=== PATIENT | female | born 1995 | race Caucasian/White ===

== ENCOUNTER → 2018-01-24 15:40 | Outpatient (CLI) | payer OTHER, SELFPAY ==
[2018-01-25 12:10] LABS: Group B Strep DNA By PCR Negative (Negative); Internal Control PASS; Probe Check PASS; Specimen Processing Control PASS
== END ==
PROVIDERS: Visit Provider Obstetrics & Gynecology
DX: Z36.85 Encounter for antenatal screening for Streptococcus B (principal)
CPT/HCPCS: 87081; 87653

== ENCOUNTER 2018-02-12 03:15 | Inpatient (IN) | payer SELFPAY ==
[2018-02-12 01:44] VITALS: BMI 26.6
[2018-02-12] MEDS: Lactated Ringers 1,000 ML 50 ML IV ×5 (03:50→14:32)
[2018-02-12] MEDS: Ondansetron 4 MG/2 ML Vial IV (03:57)
[2018-02-12 04:07] LABS: Hematocrit 34.2 % (37-47); Hemoglobin 11.4 g/dl (12.0-15.0); Mean Corp Hgb Conc 33.3 g/gl (32-36); Mean Corpuscular Hgb 31.2 pg (27.0-32.0); Mean Corpuscular Volume 93.7 fL (81-99); Mean Platelet Vol. 10.7 fl (6.2-12.0); Platelet Count 117 K/mm3 (150-450); RBC Distribution Width CV 13.7 % (11.6-14.6); RBC Distribution Width SD 46.9 fl (35.1-43.9); Red Blood Count 3.65 M/mm3 (4.2-5.4); White Blood Count 7.8 K/mm3 (4.4-11.0)
[2018-02-12 04:08] LABS: Scan Indicated on CBC? Y/N NO
[2018-02-12] MEDS: fentaNYL-bupivacaine (epidural) 100 ML BAG EPIDURAL ×3 (05:30→15:34)
[2018-02-12] MEDS: Oxytocin 30 units/NS 500 ml 30 UNITS/500 ML IV.SOLN IV (14:38)
[2018-02-12] MEDS: Oxytocin 30 units/NS 500 ml 30 UNITS/500 ML IV.SOLN 334 UNITS IV (16:09)
--- NOTE | 2018-02-12 16:25 | PCM.OB.VAG ---
Vaginal Delivery Maternal Presentation: Active Labor Amniotic Membrane Rupture Type: Spontaneous Amniotic Fluid Description: Clear Final ABHIJEET: 02/18/18 Final ABHIJEET Source: US <20 weeks Gestational age: 39 Weeks and 1 Days Date of Procedure: 02/12/18 Pre-Operative Diagnosis: IUP Post-Operative Diagnosis: IUP Surgery/ Procedure Performed: Spontaneous Vaginal Delivery, Vacuum Assisted Vaginal Delivery Type of Anesthesia: Epidural Description of Procedure: Spontaneous vaginal delivery of a viable male with Apgars of 8/9 with an occiput anterior presentation with clear amniotic fluid and normal three-vessel placenta and cord around the neck ?1 loose. First-degree midline episiotomy extended to a second-degree midline laceration repaired with 3-0 rapide suture under epidural anesthesia. Kiwi vacuum suction used ?1 gentle pull from low outlet with no pop offs to expedite delivery of the head after more than 3 hours of pushing and increasing maternal fatigue and deep variable decelerations with pushing. Sponge counts okay. Delivery physician: Hadley Stephen MD. Presentation: Vertex Placental Delivery Description: Spontaneous Placenta Disposition: [facility] Cord Vessel Description: 3 Vessels Cord Entanglement: Around neck x 1, loose Estimated Blood Loss: 250 cc Infant A gender: Male (1 minute): 8 (5 minute): 9 Episiotomy Description: Midline, 1st degree Laceration: Midline, Perineal Extension/lac, 2nd degree Medications given after delivery: IV Pitocin Complications: None
--- NOTE | 2018-02-12 16:29 | PCM.DCVAG ---
Discharge Diet: No Restrictions Discharge Activity: May Shower, May Take a Tub Bath May resume sexual activity in: 4-6 weeks Additional Activity Instructions:: Nothing in the vagina for 4-6 weeks. You may return to work/school in 6 weeks. Call your doctor if you observe: Fever of 101 or Higher, Inability to urinate, Inability to have a bowel movement, Using more than one pad per hour Additional Instructions: If you experience any of the following, contact your healthcare provider. Bleeding that soaks a pad every hour for 2 hours Unrelieved incision or abdominal pain Swelling, redness, discharge or bleeding from your incision or episiotomy site Your incision begins to separate Problems urinating (including inability to urinate or burning while urinating). Visual changes Severe headache Flu-like symptoms Pain or redness in one of both of your breasts Pain, warmth, tenderness or swelling in your legs, especially the calf area Frequent nausea and vomiting Symptoms of depression or anxiety If you experience any of the following, call 911 or go to the nearest Emergency Room. Chest pain Problems breathing Seizure activity Partial or complete paralysis of a body part, slurred speech, weakness or drooping of the face, or a sudden inability to walk or hold your balance Allergies/Adverse Reactions: Allergies No Known Allergies Allergy (Verified 02/12/18 01:44) Medications to take at Discharge Prenatabs FA 1 tablet PO DAILY 02/12/18 Please Follow Up With: Hadley Stephen MD - [phone] When: Call to make an appointment with your doctor in 6 weeks. Primary Care Physician: Hadley Doyle [Primary Care Provider] -
--- NOTE | 2018-02-12 16:30 | DCINST_ITS ---
Discharge Diet: No Restrictions Discharge Activity: May Shower, May Take a Tub Bath May resume sexual activity in: 4-6 weeks Additional Activity Instructions:: Nothing in the vagina for 4-6 weeks. You may return to work/school in 6 weeks. Call your doctor if you observe: Fever of 101 or Higher, Inability to urinate, Inability to have a bowel movement, Using more than one pad per hour Additional Instructions: If you experience any of the following, contact your healthcare provider. * Bleeding that soaks a pad every hour for 2 hours * Unrelieved incision or abdominal pain * Swelling, redness, discharge or bleeding from your incision or episiotomy site * Your incision begins to separate * Problems urinating (including inability to urinate or burning while urinating) . * Visual changes * Severe headache * Flu-like symptoms * Pain or redness in one of both of your breasts * Pain, warmth, tenderness or swelling in your legs, especially the calf area * Frequent nausea and vomiting * Symptoms of depression or anxiety If you experience any of the following, call 911 or go to the nearest Emergency Room. * Chest pain * Problems breathing * Seizure activity * Partial or complete paralysis of a body part, slurred speech, weakness or drooping of the face, or a sudden inability to walk or hold your balance Allergies/Adverse Reactions: Allergies No Known Allergies Allergy (Verified 02/12/18 01:44) Medications to take at Discharge Prenatabs FA 1 tablet PO DAILY 02/12/18 Please Follow Up With: Hadley Stephen MD - [phone] When: Call to make an appointment with your doctor in 6 weeks. Primary Care Physician: Hadley Doyle [Primary Care Provider] -
[2018-02-12] MEDS: Oxytocin 30 units/NS 500 ml 30 UNITS/500 ML IV.SOLN 167 UNITS IV (16:39)
[2018-02-12 20:41] VITALS: BP 107/62; PULSE 82; RESP 18; TEMP 36.9
[2018-02-12] MEDS: Ibuprofen 600 MG Tablet PO (21:09)
--- NOTE | 2018-02-12 21:10 | NURSING ---
At 2049, Miryam RN and Liban MCGHEE assisted pt to bathroom. Pt got dizzy and light-headed after voiding and doing irvni care. Pt then assisted to wheelchair and moved to room 6. Pt assisted into bed and then given orange juice and vital signs and bleeding assessed, all wnl. Pt encouraged to call for assistance when getting up to void again.
[2018-02-12 21:11] VITALS: BP 110/64; PULSE 69; RESP 16; O2SAT 100
[2018-02-13 00:15] VITALS: BP 107/49; PULSE 82; RESP 18; TEMP 36.3
[2018-02-13 04:48] VITALS: BP 107/68; PULSE 71; RESP 16; TEMP 36.6
[2018-02-13 06:00] VITALS: BP 100/50; PULSE 78; RESP 16; TEMP 36.6; O2SAT 95
[2018-02-13] MEDS: Ibuprofen 600 MG Tablet PO ×2 (06:33→23:12)
[2018-02-13 10:00] VITALS: BP 109/69; PULSE 103; RESP 16; TEMP 36.7; O2SAT 94
--- NOTE | 2018-02-13 10:12 | PCM.PN.OB ---
Subjective: Patient without complaints. Breast-feeding going well. Perineum sore. - Physical Exam Vital Signs AF, VSS Temp Pulse Resp BP Pulse Ox 97.9 F 78 16 100/50 L 95 02/13/18 06:00 02/13/18 06:00 02/13/18 06:00 02/13/18 06:00 02/13/18 06:00 Oxygen Delivery Method Room Air Weight: 180 lb 12.465 oz Body Mass Index (BMI) 26.6 Intake and Output for Last 24 Hours 02/11/18 02/12/18 02/13/18 23:59 23:59 23:59 Intake Total 4811 / 4811 Output Total 3200 / 3200 850 / 850 Balance 1611 / 1611 -850 / -850 Laboratory Tests Past 24 Hrs 02/12/18 02/12/18 18:15 Unknown Kleihauer-Betke F Hgb Pending Screen POSITIVE H Baby's Blood Type A POSITIVE Baby's SOFYA NEGATIVE Medical Necessity - Tobacco Use Smoking Status: Never smoker Assessment/Plan Doing well. Continuing present care.
[2018-02-13 14:00] VITALS: BP 109/54; PULSE 76; RESP 16; TEMP 36.7; O2SAT 95
[2018-02-13 15:02] LABS: Kleihauer-Betke POSITIVE
[2018-02-13] MEDS: Acetaminophen 500 MG Tablet 1000 MG PO (19:15)
[2018-02-13 19:50] VITALS: BP 105/56; PULSE 71; RESP 16; TEMP 36.3; O2SAT 95
[2018-02-14 01:59] VITALS: BP 95/47; PULSE 71; RESP 18; TEMP 36.7; O2SAT 96
--- NOTE | 2018-02-14 06:54 | PCM.PN.OB ---
Subjective: Patient without complaints. Breast-feeding going well. Ready to go home. - Physical Exam Vital Signs AF, VSS Temp Pulse Resp BP Pulse Ox 98.1 F 71 18 95/47 L 96 02/14/18 01:59 02/14/18 01:59 02/14/18 01:59 02/14/18 01:59 02/14/18 01:59 Oxygen Delivery Method Room Air Weight: 180 lb 12.465 oz Body Mass Index (BMI) 26.6 Intake and Output for Last 24 Hours 02/12/18 02/13/18 02/14/18 23:59 23:59 23:59 Intake Total 4811 / 4811 Output Total 3200 / 3200 850 / 850 Balance 1611 / 1611 -850 / -850 Laboratory Tests Past 24 Hrs 02/12/18 Unknown Lakeshaauer-Betjenny F Hgb POSITIVE H Medical Necessity - Tobacco Use Smoking Status: Never smoker Assessment/Plan Doing well day #2. Will release to home with routine instructions.
[2018-02-14] MEDS: Acetaminophen 500 MG Tablet 1000 MG PO (07:02)
[2018-02-14 07:32] VITALS: BP 93/47; PULSE 72; RESP 16; TEMP 36.5; O2SAT 96
== END 2018-02-14 11:40 | disposition home or self-care (01) | DRG 775 ==
LOC: WPOUT 03:20
PROVIDERS: Admitting Provider Obstetrics & Gynecology; Family Provider Family Medicine; PCP Family Medicine; Visit Provider Obstetrics & Gynecology
DX: O76 Abnormality in fetal heart rate and rhythm complicating labor and delivery (principal); O99.113 Other diseases of the blood and blood-forming organs and certain disorders involving the immune mechanism complicating pregnancy, third trimester; O26.813 Pregnancy related exhaustion and fatigue, third trimester; O42.02 Full-term premature rupture of membranes, onset of labor within 24 hours of rupture; O69.81X0 Labor and delivery complicated by cord around neck, without compression, not applicable or unspecified; D69.6 Thrombocytopenia, unspecified; O70.1 Second degree perineal laceration during delivery; Z3A.39 39 weeks gestation of pregnancy; Z37.0 Single live birth
CPT/HCPCS: 59050; 85027; 85460; 85461; 86850; 86900; 90384; 99218; J7120; G0378; J2405; J2790

== ENCOUNTER → 2019-12-11 16:00 | Outpatient (CLI) | payer OTHER, SELFPAY ==
[2019-12-14 01:12] LABS: HPV Reflexed? NOT INDICATED
== END ==
PROVIDERS: Visit Provider Obstetrics & Gynecology
DX: Z12.4 Encounter for screening for malignant neoplasm of cervix (principal)
CPT/HCPCS: 88175; G0145

== ENCOUNTER → 2020-05-23 14:33 | Outpatient (CLI) | payer OTHER, SELFPAY ==
[2020-05-23 16:03] LABS: Absolute Lymphocyte Count 1.04 X10^3/uL (0.83-4.51); Absolute Neutrophil Count 4.8 X10^3/uL (2.0-7.7); Basophil# 0.01 X10^3/uL; Basophil% 0.2 % (0-1); Eosinophil# 0.06 X10^3/uL; Hematocrit 33.5 % (37-47); Hemoglobin 11.3 g/dL (12.0-15.0); Lymphocyte # 1.04 X10^3/ul (4.0); Lymphocyte % 16.5 % (19-41); Mean Corp Hgb Conc 33.7 g/dL (32-36); Mean Corpuscular Volume 91.8 fL (81-99); Mean Platelet Vol. 10.5 fl (6.2-12.0); Monocyte# 0.37 X10^3/uL; Monocyte% 5.9 % (0-10); NRBC Flagged by Analyzer 0 % (0-5); Neutrophil # 4.82 X10^3/uL (2.7-7.7); Neutrophil % 76.2 % (47-70); Platelet Count 125 K/mm3 (150-450); RBC Distribution Width CV 13.2 % (11.6-14.6); RBC Distribution Width SD 43.8 fl (35.1-43.9); Red Blood Count 3.65 M/mm3 (4.2-5.4); White Blood Count 6.3 K/mm3 (4.4-11.0)
[2020-05-23 16:20] LABS: Thyroid Stim Hormone (TSH) 0.79 uIU/mL (0.358-3.74)
[2020-05-23 16:29] LABS: Color, Urine Yellow (Yellow); Glucose, Dipstick Normal (Normal); Ketone-Dipstick Negative (Negative); Leukocyte Esterase-Dipstick Negative /ul (Negative); Nitrite-Dipstick Negative (Negative); Occult Blood-Urine Negative /ul (Negative); Protein-Dipstick Negative (Negative); Urine Bilirubin Dipstick Negative (Negative); Urine Clarity Clear (Clear); Urine Urobilinogen Normal (Normal)
[2020-05-23 18:25] LABS: Chlamydia Trachomatis by PCR Negative (Negative); Neisserai gonorrhoeae by PCR Negative (Negative); Probe Check PASS; Sample Adequacy Control PASS; Specimen Processing Control PASS
[2020-05-26 11:04] LABS: HIV - WCH Non-Reactive (Nonreactive); Hepatitis B Surface Antigen Non-Reactive (Nonreactive); Hepatitis C Antibody Non-Reactive (Nonreactive); Rubella IgG 54.7 IU/mL
[2020-05-29 11:06] LABS: Prenatal RPR NONREACTIVE (NONREACTIVE)
== END ==
PROVIDERS: Visit Provider Obstetrics & Gynecology
DX: Z34.82 Encounter for supervision of other normal pregnancy, second trimester (principal); Z11.3 Encounter for screening for infections with a predominantly sexual mode of transmission
CPT/HCPCS: 36415; 81002; 84443; 85025; 86703; 86762; 86803; 87340; 87491; 87591

== ENCOUNTER → 2020-10-21 | Outpatient (CLI) | payer OTHER, SELFPAY | END | disposition home or self-care (01) | LOC: LABSPEC 10-22 08:52 | PROVIDERS: Visit Provider Obstetrics & Gynecology | DX: Z36.85 Encounter for antenatal screening for Streptococcus B (principal) | CPT/HCPCS: 87081 ==

== ENCOUNTER → 2020-11-04 17:22 | Outpatient (CLI) | payer OTHER, SELFPAY | PROVIDERS: PCP Family Medicine; Referring Provider Obstetrics & Gynecology; Visit Provider Obstetrics & Gynecology | DX: Z20.822 Contact with and (suspected) exposure to COVID-19 (principal) | CPT/HCPCS: 87635; C9803; U0003 ==

== ENCOUNTER 2020-11-05 21:40 | Inpatient (IN) | payer SELFPAY, OTHER ==
[2020-11-05] VITALS (24 sets, daily range): BP systolic 96–122; BP diastolic 59–85; PULSE 62–85; TEMP 36.2–36.9; O2SAT 97–99; BMI 27.1
[2020-11-05] MEDS: Lactated Ringers 1,000 ML 200 ML IV (21:50)
[2020-11-05] MEDS: Lactated Ringers 500 ML 999 ML IV ×2 (22:05→23:50)
[2020-11-05 22:16] LABS: Absolute Lymphocyte Count 1.05 X10^3/uL (0.83-4.51); Absolute Neutrophil Count 7.4 X10^3/uL (2.0-7.7); Basophil# 0.01 X10^3/uL; Basophil% 0.1 % (0-1); Eosinophil# 0.03 X10^3/uL; Eosinophils% 0.3 % (0-5); Hematocrit 31.1 % (37-47); Hemoglobin 10.8 g/dL (12.0-15.0); Lymphocyte # 1.05 X10^3/ul (4.0); Lymphocyte % 11.6 % (19-41); Mean Corp Hgb Conc 34.7 g/dL (32-36); Mean Corpuscular Hgb 32.6 pg (27.0-32.0); Mean Platelet Vol. 10.8 fl (6.2-12.0); Monocyte% 5.5 % (0-10); NRBC Flagged by Analyzer 0 % (0-5); Neutrophil # 7.41 X10^3/uL (2.7-7.7); Neutrophil % 82.1 % (47-70); Platelet Count 115 K/mm3 (150-450); RBC Distribution Width CV 13.2 % (11.6-14.6); RBC Distribution Width SD 45.5 fl (35.1-43.9); Red Blood Count 3.31 M/mm3 (4.2-5.4)
[2020-11-05 22:20] LABS: ROM Internal Control Test YES-OK TO RESULT pt. (Internal QC); ROM Patient Test Negative (Negative)
[2020-11-05] MEDS: fentaNYL-bupivacaine (epidural) 100 ML BAG EPIDURAL (23:52)
[2020-11-06] VITALS (37 sets, daily range): BP systolic 82–115; BP diastolic 46–74; PULSE 60–82; RESP 16; TEMP 36.1–36.9; O2SAT 96–100
[2020-11-06] MEDS: Lactated Ringers 500 ML 999 ML IV (02:08)
[2020-11-06] MEDS: ePHEDrine Sulfate 50 MG/ML Ampul 10 MG IV (02:57)
[2020-11-06] MEDS: 0.9% Saline Lock 10 ML Syringe IV (03:09)
[2020-11-06] MEDS: Lactated Ringers 1,000 ML 200 ML IV (04:38)
[2020-11-06] MEDS: fentaNYL-bupivacaine (epidural) 100 ML BAG EPIDURAL (04:42)
[2020-11-06] MEDS: Oxytocin 30 units/NS 500 ml 30 UNITS/500 ML IV.SOLN IV (06:02)
[2020-11-06] MEDS: Oxytocin 30 units/NS 500 ml 30 UNITS/500 ML IV.SOLN 334 UNITS IV (09:30)
--- NOTE | 2020-11-06 09:51 | HP.PCM_ITS ---
History and Physical Date of Admission: 11/05/20 [facility] [place] [place] ANTEPARTUM RECORD - HISTORY AND PHYSICAL (11/06/2020) Name: NA LEONARD History of This : This is a 25-year-old AB 3 who presents in active labor at 39 weeks gestation. care has been uneventful. OB Physician: JOSE 's Physician: Cindy Doyle ...................................................................... : 1995 Age: 25 Address: [address] [place] [address] Phone: [phone] Insurance Carrier: [facility] [id number] Emergency Contact: BOB LEONARD [phone] ...................................................................... Final ABHIJEET: 11/13/20 By Ultrasound: 15 weeks 1 day PARITY: (G-Total Pregnancies P-Fullterm,Premature,Induced AB,Spont AB, Ectopics, Multiple,Living) ABHIJEET CONFIRMATION: By LMP: 02/07/20 Final ABHIJEET: 11/13/20 OB PROBLEM LIST: 3 early SAB's 3 hr 2nd stage with son, vac assist AFP/CF/SMA screening declined - considering class EPDS on 05/23/2020 = 1. States she had baby blues after son was born. breeds and boards horses. Likely epidural ALLERGIES: No Known Allergies MEDICATIONS: 28 mg iron-800 mcg tablet One pill by mouth once a day SOCIAL HISTORY: Smoking - Never Alcohol Use - None Diet - no special diet Lifestyle - moderate stress lifestyle and Exercise - active Employer - [employer] Job Description - Illicit Drug Use - None Sexual Activity - Residence - lives with Place of - [place], [place] Spouse-Sig Other Name - Ray Spouse-Sig Other Occupation - Self Employed/[employer] Children Name(s) - David(18) PRIOR DELIVERY HISTORY DEL DATE GEST LAB WT LB WT OZ TYPE ANES LABOR TX 03 Feb 17 12 0 0 0 Sab Epidural No 08 Feb 20 6 0 0 0 Sab None No 21 Oct 16 6 0 0 0 Sab Epidural No 29 Apr 18 39 18 8 4 Vacuu Epidural No ANTEPARTUM FLOW CHART VISIT GE RTC FU F F HI U U DATE WK MD WKS HT PN HR M SS BP ED WT HI GL D EF ST __ ____ ___ __ __ ___ __ __ __ ___ __ __ __ ___ __ Oct JM 1 38 V + + 114/68 sl 180 tr - 4 70 -2 12 Oct JMW 1 36 V + + 120/70 sl 184 tr - 3+ 75 -2 05 Oct JMW 1 35 V + + 114/64 sl 178 1+ - 2+ 75 -2 Sep JMW 2 34 + + 102/58 0 176 tr - 01 Oct 16 JMW 3 31 + + 102/64 sl 173 tr - 10 Sep 13 JMW 3 28 + + 106/58 0 173 - 1+ 06 Aug 08 JMW 4 24 + + 108/58 0 167 tr - 03 Jul 05 JMW 4 20 + + 106/60 0 159 - - ANTEPARTUM NOTE(S): Nov 04 2020: feeling well, considering induction Oct 28 2020: Ctxs-occas, Good FM Oct 21 2020: LARQ signed, GBS today Oct 07 2020: Nausea Returned, Good FM Sep 16 2020: Good FM, yeast itchiness with OTC Monistat discussed Aug 26 2020: 1hrGTT,CBC,Antibody screen draw, and Rhogam today Jul 22 2020: Doing Well and Glucola Given Jun 19 2020: Sono Today,Periodic vertigo with same discussed COMPREHENSIVE ANTEPARTUM NOTE(S): Nov 04 2020: 38wk, desires IOL at 39wk. Needs COVID testing prior to elective induction. Pt to attempt to get COVID testing arin. When results are back will schedule IOL as soon as possible. Favorable cervix. swept membranes today. JM Aug 26 2020: Labs drawn from left ac x 1 attempt with 23G butterfly patient tolerated well, site without compromise. RHogam administered IM as ordered RUOQ patient tolerated well site without compromise. jlb May 30 2020: TELEHEALTH NOB VISIT. Na is a 24 year old A3 with an ABHIJEET of 11/13/2020, current GA is 16 w 1 d. She and , Bob, have a 2 year old son at home who was delivered with vac assist following a 3 hour 2nd stage. Past history updated. She states that she is feeling some FM. Delivery at [facility] is planned with a likely epidural, and she will breastfeed. States that she had difficulty nursing her son, and switched to formula. Discussed and encouraged office class as a refresher, she states that she may do this. Office practice patterns reviewed, labs have been collected. Emergencies/danger signs to report, reporting a suspected UTI, round ligament pain, how to contact the office during/after hours, and common OTC medications for minor ailments approved/not approved for use during . Na has been feeling some nausea most days, no emesis lately. She states that the nausea is tolerable as she was nauseated throughout her with her son. Reviewed measures that may help minimize nausea, including small frequent meals with protein included throughout the day, adequate water hydration of at least one gallon per 24 hours, carb rich foods when nauseated, and motion sickness bracelets. She states that she has tried Vitamin B6 50 mg twice a day along with Unisom at bedtime, and that she felt worse. Na takes an OTC gummy vitamin containing DHA and states that she tolerates this well. Denies history of depression/anxiety, but states that she felt a little of the baby blues after my son was born. EPDS on 05/23/2020 = 11/15. She declined AFP/CF/SMA screening on 05/23/2020. Na is a life long non-smoker, and denies use of drugs or ETOH. She walks everyday and does active chores on the [place]. Advised not to lift anything greater than 25 lbs. Water/dietary/caloric needs for reviewed, including recommended weight gain, limiting empty calories, limiting caffeine to one cup a day, and food safety during . Na states that she understands all information provided during 35 minute telephone NOB visit, and that she has no questions following same. AW New May 23 2020: As above, spotting improving. No clots or heavy bleeding. Asymptomatic otherwise. JM May 23 2020: Na is here for a missed menses. LMP 02/07/2020. UPT in office positive. She has spotting off and on since February. Tuesday the spotting was bright red. She has US today. ABHIJEET 11/13/2020. PAP 2019 WNL. She expressed that does not want GCCT testing. New Pkt given today. NOB consents read and signed. HECTOR Dec 11 2019: Na presents here today with spouse(Bob) for annual pap/ex am. 24 y.o. G 4 P 1 non-smoker with reported Missed AB on 11-22-19 at approximately 5 weeks. 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 Admits to having moments of sadness since the Missed AB, but not all the time. PHQ-9 form filled out with a score of 4 . History of normal pap screening in 2017. Medication and Allergy lists up-dated with no refills needed. Nothing for control as she would like to attempt again in the near future. OLIMPIA Dec 11 2020: ok REVIEW OF SYSTEMS: GENERAL - Denies fever, or chills SKIN - Denies rash, new skin lesions, or change in moles EYES - Denies blurred vision, or change in visual acuity EARS - Denies ear pain, or difficulty hearing NOSE - Denies nasal congestion, discharge, or bleeding MOUTH - Denies sore throat, or difficulty swallowing NECK - Denies pain or swelling RESPIRATORY - Denies shortness of breath, cough, wheezing CARDIOVASCULAR - Denies palpitations, chest pain, orthopnea, PND, peripheral edema, syncope or claudication GASTROINTESTINAL - Denies nausea, vomiting, diarrhea, constipation, Denies abdominal pain, melena and or bright red blood GENITOURINARY - Denies dysuria, frequency of urination, urgency, or hesitancy MUSCULOSKELETAL - Denies joint or muscle pain, or back pain NEUROLOGICAL - Denies localized numbness, weakness, or tingling PSYCHIATRIC - Denies depression, anxiety, substance abuse or suicide attempts ENDOCRINE - Denies heat or cold intolerance, weight loss or gain, increasing thirst HEMATO-IMMUNOLOGIC - Denies easy bruising, bleeding, oral ulcerations or recurrent infections GENETICS SCREENING: Age 35+ years: No Thalassemia: No Neural Tube Defect: No Down Syndrome: No HIRAM-SACHS: No Sickle Cell Disease: No Hemophilia: No Musc. Dystrophy: No Cystic Fibrosis: No-declines screening Sampson Chorea: No Mental Retardation: No Fragile X: No Other genetic: No Other defects: No SABs/still births: Yes x3 Drugs since LMP: No INFECTION HISTORY: High risk AIDS: No High risk Hepatitis: No Exposed to TB: No Exposed to Herpes: No Rash/viral illness since LMP: No History of STD: No MENSTRUAL HISTORY: *Menses Amount/Duration: normal amountMenses Regularity: RegularFrequency: monthlyMenarche (Age Onset): 10* PAST SUMMARY: PARITY: 1. Total Pregnancies............ 5 2. Full Term Pregnancies........ 1 3. Premature.................... 0 4. Abortions - Induced.......... 0 5. Abortions - Spontaneous...... 3 6. Ectopics..................... 0 7. Multiple Births.............. 0 8. Living Children.............. 1 PAST #1: Date of :.................. 08/06/16 Gestation Weeks:................ 6 Length of labor(hours):......... 0 Sex:............................ Weight-lbs:............... 0 Weight-oz:................ 0 Type of Delivery:............... Sab Type of Anesthesia:............. Epidural Place of Delivery:.............. [place] Treatment of Labor?:.... No Comment: PAST #2: Date of :.................. 11/19/16 Gestation Weeks:................ 12 Length of labor(hours):......... 0 Sex:............................ Weight-lbs:............... 0 Weight-oz:................ 0 Type of Delivery:............... Sab Type of Anesthesia:............. Epidural Place of Delivery:.............. [place] Treatment of Labor?:.... No Comment: D AND C PAST #3: Date of :.................. 02/12/18 Gestation Weeks:................ 39 Length of labor(hours):......... 18 Sex:............................ M Weight-lbs:............... 8 Weight-oz:................ 4 Type of Delivery:............... Vacuum Type of Anesthesia:............. Epidural Place of Delivery:.............. [place] Treatment of Labor?:.... No Comment: 3 H SECOND STAGE PAST #4: Date of :.................. 11/24/19 Gestation Weeks:................ 6 Length of labor(hours):......... 0 Sex:............................ Weight-lbs:............... 0 Weight-oz:................ 0 Type of Delivery:............... Sab Type of Anesthesia:............. None Place of Delivery:.............. none Treatment of Labor?:.... No Comment: NO D+C PHYSICAL EXAMINATION General Appearence: 25 yo female in no acute distress Vital Signs: AF, VSS Heart: RRR without rubs or gallops Lungs: CTA x 2 Breasts: deferred Abdomen: gravid Pelvis: Cervix: 6 cm / 90% effaced, bulging bag of water Presentation: cephalic Station: -2 Fetus: Size: AGA Movement: present Heart: present Labs for : NA LEONARD since 02/17/2020 ORDER DATEIN DESCRIPTION VALUE UNITS RANGE A+ COMMENT CULTURE, GROUP B STREPTOCOCCUS 10/21/20 NOTE Original Ordering Provider: Masha SANFORD Culture Group B Beta Streptococcus is not isolated. Reviewed by MASHA GLUCOSE CHALLENGE 50GM 1 HOUR 08/26/20 NOTE Original Ordering Provider: MASHA ROMANO GLUCOSE CHALLENGE 50GM 1 HOUR GLUCOSE CHALLENGE 50 GMS 1 HOUR GLUCOSE 1HR 95 mg/dl 70 - 140 Reviewed by MASHA BB ANTIBODY SCREEN 08/26/20 NOTE Original Ordering Provider: MASHA ROMANO ANTIBODY SCR negative negative Reviewed by MASHA CBC + DIFF 08/26/20 NOTE Original Ordering Provider: MASHA ROMANO CBC + DIFF CBC-COMPLETE BLOOD COUNT WBC 6.5 x 10EE3/UL 4.5 - 10.8 RBC 3.52 x 10EE6/UL 4.10 - 5.30 L HEMOGLOBIN 11.4 g/dl 12.0 - 16.0 L HEMATOCRIT 33.4 % 34.0 - 46.0 L MCV 95 fl 80 - 99 MCH 33 pg 27 - 33 MCHC 34 X10 3 32 - 36 RDW/CV 13.8 % 12.0 - 15.6 PLATELET 133 x10EE3/UL 150 - 450 L MPV 9.1 fl 6.6 - 10.5 AUTOMATED DIFFERENTIAL NEUT % 81.8 % 46.0 - 76.0 H LYMPH % 12.4 % 20.0 - 45.0 L MONOS % 5.0 % 0.0 - 10.0 EO % 0.6 % 0.0 - 7.0 w BASO % 0.2 % 0.0 - 2.0 LYMPH # 0.80 x10EE3/UL 0.80 - 2.80 NEUT # 5.30 x10EE3/UL 1.50 - 7.10 MONO # 0.30 x10EE3/UL 0.20 - 1.00 EO # 0.00 x10EE3/UL 0.00 - 0.50 BASO # 0.00 x10EE3/UL 0.00 - 0.10 MANUAL DIFF N/A MORPHOLOGY N/A w Reviewed by MASHA GC-Chlamydia 05/23/20 Chlamydia NEGATIVE Negative GC NEGATIVE No Growth Reviewed by MASHA Initial OB Labs 05/23/20 Blood Type A Rh Type NEG Antibody Screen NEGATIVE Negative Hemoglobin Initial OB 11.3 Hematocrit Initial OB 33.5 PLT 125 Rubella IMMUNE Immune VDRL NON-REACTIVE Non Reactive HBsAg NEGATIVE Negative HEP C AB: NEG HIV Test NEG Negative Urine Protein NEG Negative Urine Glucose NEG Negative Reviewed by MASHA Impression /Plan: 39-week intrauterine in early active labor. Preparations in progress for delivery.
--- NOTE | 2020-11-06 09:54 | PCM.OPRPT ---
Vaginal Delivery Maternal Presentation: Active Labor Amniotic Membrane Rupture Type: Artificial Amniotic Fluid Description: Clear Final ABHIJEET: 11/13/20 Final ABHIJEET Source: US <20 weeks Gestational age: 39 Weeks and 0 Days Date of Procedure: 11/06/20 Pre-Operative Diagnosis: IUP Post-Operative Diagnosis: IUP Surgery/ Procedure Performed: Spontaneous Vaginal Delivery Type of Anesthesia: Epidural Description of Procedure: Spontaneous vaginal delivery of a viable female infant with Apgars of 9/9 from an occiput anterior presentation with clear amniotic fluid and normal three-vessel placenta. Cord around the neck x2 tight and around the shoulders x1 tight. No episiotomy. First-degree midline laceration repaired with 3-0 Rapide suture under epidural. Banjo curette used x2 gentle curettings to remove adherent membranes. Ancef 1 g given after procedure. Sponges okay. Delivery physician: Hadley Stephen MD. Presentation: Vertex Placental Delivery Description: Spontaneous Placenta Disposition: [facility] Cord Vessel Description: 3 Vessels Cord Entanglement: Around neck x 2, tight Estimated Blood Loss: 250 cc Infant A gender: Female (1 minute): 9 (5 minute): 9 Episiotomy Description: None Laceration: Midline, 1st degree Medications given after delivery: IV Pitocin Complications: None
--- NOTE | 2020-11-06 09:56 | DCINST_ITS ---
<Hadley Stephen - Last Filed: 11/06/20 09:56> Discharge Activity: May Shower, May Take a Tub Bath May resume sexual activity in: 4-6 weeks Additional Activity Instructions:: Nothing in the vagina for 4-6 weeks. You may return to work/school in 6 weeks. Call your doctor if you observe: Inability to urinate, Inability to have a bowel movement, Using more than one pad per hour Additional Instructions: If you experience any of the following, contact your healthcare provider. * Bleeding that soaks a pad every hour for 2 hours * Fever 100.4 or higher * Unrelieved incision or abdominal pain * Swelling, redness, discharge or bleeding from your incision or episiotomy site * Your incision begins to separate * Problems urinating (including inability to urinate or burning while urinating). * Visual changes * Severe headache * Flu-like symptoms * Pain or redness in one of both of your breasts * Pain, warmth, tenderness or swelling in your legs, especially the calf area * Frequent nausea and vomiting * Symptoms of depression or anxiety If you experience any of the following, call 911 or go to the nearest Emergency Room. * Chest pain * Problems breathing * Seizure activity * Partial or complete paralysis of a body part, slurred speech, weakness or drooping of the face, or a sudden inability to walk or hold your balance Allergies/Adverse Reactions: Allergies No Known Allergies Allergy (Verified 11/05/20 21:15) Medications to take at Discharge Prenatabs FA 1 tablet PO DAILY 02/12/18 Please Follow Up With: Hadley Stephen MD - [phone] When: Call to make an appointment with your doctor in 6 weeks. Primary Care Physician: Hadley Doyle MD [Primary Care Provider] - Test Results: Test results from this visit will be discussed in further detail at your follow- up appointment, if applicable. <Mariella Ulloa - Last Filed: 11/07/20 08:55> Additional Instructions: If you experience any of the following, contact your healthcare provider. * Bleeding that soaks a pad every hour for 2 hours * Fever 100.4 or higher * Unrelieved incision or abdominal pain * Swelling, redness, discharge or bleeding from your incision or episiotomy site * Your incision begins to separate * Problems urinating (including inability to urinate or burning while urinating). * Visual changes * Severe headache * Flu-like symptoms * Pain or redness in one of both of your breasts * Pain, warmth, tenderness or swelling in your legs, especially the calf area * Frequent nausea and vomiting * Symptoms of depression or anxiety If you experience any of the following, call 911 or go to the nearest Emergency Room. * Chest pain * Problems breathing * Seizure activity * Partial or complete paralysis of a body part, slurred speech, weakness or drooping of the face, or a sudden inability to walk or hold your balance Test Results: Test results from this visit will be discussed in further detail at your follow-up appointment, if applicable.
--- NOTE | 2020-11-06 09:56 | PCM.DCVAG ---
<Hadley Stephen - Last Filed: 11/06/20 09:56> Discharge Activity: May Shower, May Take a Tub Bath May resume sexual activity in: 4-6 weeks Additional Activity Instructions:: Nothing in the vagina for 4-6 weeks. You may return to work/school in 6 weeks. Call your doctor if you observe: Inability to urinate, Inability to have a bowel movement, Using more than one pad per hour Additional Instructions: If you experience any of the following, contact your healthcare provider. Bleeding that soaks a pad every hour for 2 hours Fever 100.4 or higher Unrelieved incision or abdominal pain Swelling, redness, discharge or bleeding from your incision or episiotomy site Your incision begins to separate Problems urinating (including inability to urinate or burning while urinating). Visual changes Severe headache Flu-like symptoms Pain or redness in one of both of your breasts Pain, warmth, tenderness or swelling in your legs, especially the calf area Frequent nausea and vomiting Symptoms of depression or anxiety If you experience any of the following, call 911 or go to the nearest Emergency Room. Chest pain Problems breathing Seizure activity Partial or complete paralysis of a body part, slurred speech, weakness or drooping of the face, or a sudden inability to walk or hold your balance Allergies/Adverse Reactions: Allergies No Known Allergies Allergy (Verified 11/05/20 21:15) Medications to take at Discharge Prenatabs FA 1 tablet PO DAILY 02/12/18 Please Follow Up With: Hadley Stephen MD - [phone] When: Call to make an appointment with your doctor in 6 weeks. Primary Care Physician: Hadley Doyle MD [Primary Care Provider] - Test Results: Test results from this visit will be discussed in further detail at your follow-up appointment, if applicable. <Mariella Ulloa - Last Filed: 11/07/20 08:55> Additional Instructions: If you experience any of the following, contact your healthcare provider. Bleeding that soaks a pad every hour for 2 hours Fever 100.4 or higher Unrelieved incision or abdominal pain Swelling, redness, discharge or bleeding from your incision or episiotomy site Your incision begins to separate Problems urinating (including inability to urinate or burning while urinating). Visual changes Severe headache Flu-like symptoms Pain or redness in one of both of your breasts Pain, warmth, tenderness or swelling in your legs, especially the calf area Frequent nausea and vomiting Symptoms of depression or anxiety If you experience any of the following, call 911 or go to the nearest Emergency Room. Chest pain Problems breathing Seizure activity Partial or complete paralysis of a body part, slurred speech, weakness or drooping of the face, or a sudden inability to walk or hold your balance Test Results: Test results from this visit will be discussed in further detail at your follow-up appointment, if applicable.
[2020-11-06] MEDS: Cefazolin 1 GM/50 ML BAG IV (10:06)
[2020-11-06] MEDS: Ibuprofen 600 MG Tablet PO (16:38)
[2020-11-06] MEDS: Acetaminophen 500 MG Tablet 1000 MG PO (20:33)
[2020-11-07 00:53] VITALS: BP 96/94; PULSE 67; RESP 16; TEMP 36.4
[2020-11-07 03:42] VITALS: BP 96/50; PULSE 72; RESP 18; TEMP 36.6
[2020-11-07 07:15] VITALS: BP 108/70; PULSE 70; RESP 16; TEMP 36.3; O2SAT 96
[2020-11-07] MEDS: Ibuprofen 600 MG Tablet PO (07:23)
--- NOTE | 2020-11-07 09:02 | PCM.PN.OB ---
Subjective: No issues overnight. Intermittent cramping tolerable and improved with Tylenol. OOB, no voiding difficulties. Denies heavy lochia. She is and it is going well. Objective: AVSS - Physical Exam Vitals/I&O's: Vital Signs Temp Pulse Resp BP Pulse Ox 97.4 F L 70 16 108/70 96 11/07/20 07:15 11/07/20 07:15 11/07/20 07:15 11/07/20 07:15 11/07/20 07:15 Oxygen Delivery Method Room Air Weight: 83.3 kg Body Mass Index (BMI) 27.1 Intake and Output for Last 24 Hours 11/05/20 11/06/20 11/07/20 23:59 23:59 23:59 Intake Total 796.67 / 796.67 3842.06 / 3842.06 Output Total 2175 / 2175 Balance 796.67 / 796.67 1667.06 / 1667.06 General: Alert, Oriented x3, Cooperative HEENT: Atraumatic, Normocephalic Lungs: Clear to auscultation, Normal air movement Cardiovascular: Regular rate, Regular Rhythm, Normal S1, Normal S2 Abdomen: Soft, Non Tender, Non-Distended, - - Fundus firm and nontender Extremities: No edema, No Calf Tenderness Neurological: Neuro grossly intact Psych/Mental Status: Normal Affect, Appropriate, Alert and oriented to time, place, person, mood and affect Microbiology Past 72 Hours 11/05/20 22:00 Mucosa - Nose SARS-CoV-2 Antigen (Rapid) - Final Laboratory Results 11/06/20 11:30: Screen NEGATIVE, Baby's Blood Type A POSITIVE, Baby's SOFYA NEGATIVE Current Medications Acetaminophen (Acetaminophen 500 Mg Tablet) 1,000 mg PO Q8H PRN PRN PRN Reason: Pain Score 1-3 Last Admin: 11/06/20 20:33 Dose: 1,000 mg Documented by: Bisacodyl (Bisacodyl 10 Mg Suppository) 10 mg RECTAL UD PRN PRN Reason: If no BM Dibucaine (Dibucaine 30 Gm Tube) 1 applic TOPICAL TID PRN PRN; Protocol PRN Reason: Discomfort Hydrocortisone (Hydrocortisone 2.5% Crm) 1 applic TOPICAL TID PRN PRN; Protocol PRN Reason: Discomfort Ibuprofen (Ibuprofen 600 Mg Tablet) 600 mg PO Q6H PRN PRN PRN Reason: Pain Score 1-3 Last Admin: 11/07/20 07:23 Dose: 600 mg Documented by: Methylergonovine Maleate (Methylergonovine 0.2 Mg/Ml Ampul) 0.2 mg IM X1 PRN PRN Reason: Excess bleeding/uterine atony Ondansetron HCl (Ondansetron 4 Mg/2 Ml Vial) 4 mg IV Q4H PRN PRN PRN Reason: Nausea Oxycodone HCl (Oxycodone 5 Mg Tablet) 5 - 10 mg PO Q4H PRN PRN PRN Reason: Pain Score 4-10 Senna/Docusate Sodium (Senna/Docusate Sodium 1 Tablet) 1 - 2 tablet PO DAILY PRN PRN PRN Reason: Constipation Simethicone (Simethicone 80 Mg Tablet) 80 mg PO PCHS PRN PRN Reason: Indigestion/Stomach pain Sodium Chloride (0.9% Saline Lock 10 Ml Syringe) 5 - 15 ml IV UD PRN PRN Reason: SALINE FLUSH Zolpidem Tartrate (Zolpidem Tartrate 5 Mg Tablet) 5 mg PO QHS PRN PRN PRN Reason: Insomnia Medical Necessity - Tobacco Use Smoking Status: Never smoker Assessment/Plan 25yo PPD#1 s/p doing well. -Likely gestational thrombocytopenia - f/u platelet count at visit. Discussed with pt - -Rh negative - s/p Rhogam -Routine care -d/c home later today
== END 2020-11-07 11:00 | disposition home or self-care (01) | DRG 806 ==
LOC: WPOUT 21:46 → WP 21:47
PROVIDERS: Admitting Provider Obstetrics & Gynecology; PCP Family Medicine; Visit Provider Obstetrics & Gynecology
DX: O70.0 First degree perineal laceration during delivery (principal); O99.12 Other diseases of the blood and blood-forming organs and certain disorders involving the immune mechanism complicating childbirth; Z37.0 Single live birth; D69.59 Other secondary thrombocytopenia; O69.1XX0 Labor and delivery complicated by cord around neck, with compression, not applicable or unspecified; Z3A.39 39 weeks gestation of pregnancy; O26.23 Pregnancy care for patient with recurrent pregnancy loss, third trimester
CPT/HCPCS: 59025; 59050; 84112; 85025; 85461; 86850; 86900; 86901; 87426; 90384; 99218; J7120; A4216; G0378; J2790

== ENCOUNTER → 2022-06-08 | Outpatient (CLI) | payer OTHER, SELFPAY ==
[2022-06-08 11:14] LABS: Absolute Lymphocyte Count 0.85 X10^3/uL (0.83-4.51); Absolute Neutrophil Count 4.1 X10^3/uL (2.0-7.7); Basophil# 0.01 X10^3/uL; Basophil% 0.2 % (0-1); Eosinophil# 0.02 X10^3/uL; Eosinophils% 0.4 % (0-5); Hemoglobin 12.6 g/dL (12.0-15.0); Lymphocyte # 0.85 X10^3/ul (0.83-4.51); Lymphocyte % 15.7 % (19-41); Mean Corpuscular Hgb 30.8 pg (27.0-32.0); Mean Platelet Vol. 10.8 fl (6.2-12.0); Monocyte# 0.42 X10^3/uL; Monocyte% 7.7 % (0-10); NRBC Flagged by Analyzer 0 % (0-5); Neutrophil # 4.12 X10^3/uL (2.7-7.7); Neutrophil % 75.8 % (47-70); Platelet Count 111 K/mm3 (150-450); RBC Distribution Width CV 12.4 % (11.6-14.6); RBC Distribution Width SD 39.7 fl (35.1-43.9); Red Blood Count 4.09 M/mm3 (4.2-5.4); White Blood Count 5.4 K/mm3 (4.4-11.0)
[2022-06-08 14:07] LABS: HIV - WCH Non-Reactive (Nonreactive); Hepatitis B Surface Antigen Non-Reactive (Nonreactive); Hepatitis C Antibody Non-Reactive (Nonreactive); Rubella IgG Reactive (Nonreactive); Syphilis Antibodies Non-reactive
[2022-06-09 13:16] LABS: V-Zoster IgG (Immunity) 605 index (Immune >165)
[2022-06-10 06:08] LABS: Chlamydia By Nucleic Acid AMP Negative (Negative)
[2022-06-10 09:21] LABS: Gonococcus By Nucleic Acid AMP Negative (Negative)
[2022-06-11 15:41] LABS: HPV Reflexed? NOT INDICATED
== END | disposition home or self-care (01) ==
LOC: WOBLAB 09:55
PROVIDERS: PCP Family Medicine; Visit Provider Student in an Organized Health Care Education/Training Program
DX: Z34.81 Encounter for supervision of other normal pregnancy, first trimester (principal); Z12.4 Encounter for screening for malignant neoplasm of cervix
CPT/HCPCS: 36415; 85025; 86703; 86762; 86780; 86787; 86803; 87086; 87088; 87340; 87491; 87591; 88175; G0145

== ENCOUNTER → 2022-08-31 | Outpatient (CLI) | payer OTHER, SELFPAY ==
[2022-08-31 17:32] LABS: Free T3 1.8 pg/mL (2.18-3.98); T4 Free Direct 0.86 ng/dL (0.76-1.46); Thyroid Stim Hormone (TSH) 0.73 uIU/mL (0.358-3.74)
== END | disposition home or self-care (01) ==
LOC: WOBLAB 15:02
PROVIDERS: PCP Family Medicine; Visit Provider Internal Medicine Endocrinology, Diabetes & Metabolism
DX: O99.280 Endocrine, nutritional and metabolic diseases complicating pregnancy, unspecified trimester (principal); E06.9 Thyroiditis, unspecified
CPT/HCPCS: 36415; 84439; 84443; 84481

== ENCOUNTER → 2022-10-05 | Outpatient (CLI) | payer OTHER, SELFPAY ==
[2022-10-05 17:26] LABS: Absolute Lymphocyte Count 0.86 X10^3/uL (0.83-4.51); Basophil# 0.02 X10^3/uL; Basophil% 0.3 % (0-1); Eosinophil# 0.03 X10^3/uL; Eosinophils% 0.5 % (0-5); Hematocrit 30.5 % (37-47); Hemoglobin 10.4 g/dL (12.0-15.0); Lymphocyte # 0.86 X10^3/ul (0.83-4.51); Lymphocyte % 13.7 % (19-41); Mean Corp Hgb Conc 34.1 g/dL (32-36); Mean Corpuscular Hgb 32.3 pg (27.0-32.0); Mean Corpuscular Volume 94.7 fL (81-99); Mean Platelet Vol. 10.5 fl (6.2-12.0); Monocyte# 0.31 X10^3/uL; Monocyte% 4.9 % (0-10); NRBC Flagged by Analyzer 0 % (0-5); Neutrophil # 5.03 X10^3/uL (2.7-7.7); Platelet Count 120 K/mm3 (150-450); RBC Distribution Width CV 13.5 % (11.6-14.6); RBC Distribution Width SD 46.1 fl (35.1-43.9); Red Blood Count 3.22 M/mm3 (4.2-5.4); White Blood Count 6.3 K/mm3 (4.4-11.0)
[2022-10-05 18:56] LABS: Glucose Challenge Gest 1H 50g 133 mg/dL (70-140)
== END | disposition home or self-care (01) ==
LOC: WOBLAB 15:40
PROVIDERS: PCP Family Medicine; Visit Provider Student in an Organized Health Care Education/Training Program
DX: Z34.82 Encounter for supervision of other normal pregnancy, second trimester (principal)
CPT/HCPCS: 36415; 82950; 85025

== ENCOUNTER → 2022-11-02 | Outpatient (CLI) | payer OTHER, SELFPAY | END | disposition home or self-care (01) | LOC: WOBLAB 11:06 | PROVIDERS: PCP Family Medicine; Visit Provider Obstetrics & Gynecology | DX: Z34.83 Encounter for supervision of other normal pregnancy, third trimester (principal) | CPT/HCPCS: 36415; 86850 ==

== ENCOUNTER → 2022-11-30 | Outpatient (CLI) | payer OTHER, SELFPAY ==
[2022-11-30 15:35] LABS: Hemoglobin 9.4 g/dL (12.0-15.0); Mean Corp Hgb Conc 32.4 g/dL (32-36); Mean Corpuscular Volume 95.7 fL (81-99); Mean Platelet Vol. 10.9 fl (6.2-12.0); Platelet Count 117 K/mm3 (150-450); RBC Distribution Width CV 13.9 % (11.6-14.6); RBC Distribution Width SD 48.9 fl (35.1-43.9); Red Blood Count 3.03 M/mm3 (4.2-5.4); White Blood Count 7.5 K/mm3 (4.4-11.0)
[2022-11-30 15:47] LABS: ALB/GLOB Ratio 0.7 RATIO (0.9-2.4); AST(SGOT) 21 U/L (15-37); Alanine Aminotransfer ALT/SGPT 41 U/L (13-56); Albumin, Serum 2.8 g/dL (3.2-5.0); Alkaline Phosphatase 110 U/L (45-117); Anion Gap 6 (5-15); BUN 8 mg/dL (7-18); BUN/Creat Ratio 14.1 RATIO (10-20); Calcium,Total 8.6 mg/dL (8.5-10.1); Chloride 104 mmol/L (98-107); Creatinine, Serum 0.57 mg/dL (0.55-1.02); EST Glomerular Filtration Rate 133 mL/min (>60); Est Glom Filt Rate - Afr Amer 161 mL/min (>60); Globulin 3.8 g/dL (2.2-4.2); Glucose 81 mg/dL (74-106); Potassium 3.9 mmol/L (3.5-5.1); Protein, Total 6.6 g/dL (6.4-8.2); Sodium Level 138 mmol/L (136-145)
== END | disposition home or self-care (01) ==
LOC: WOBLAB 14:40
PROVIDERS: PCP Family Medicine; Visit Provider Student in an Organized Health Care Education/Training Program
DX: Z34.83 Encounter for supervision of other normal pregnancy, third trimester (principal)
CPT/HCPCS: 36415; 80053; 85027

== ENCOUNTER → 2022-12-07 | Outpatient (CLI) | payer OTHER, SELFPAY | END | disposition home or self-care (01) | LOC: LABSPEC 14:49 | PROVIDERS: PCP Family Medicine; Visit Provider Student in an Organized Health Care Education/Training Program | DX: Z36.85 Encounter for antenatal screening for Streptococcus B (principal) | CPT/HCPCS: 87081 ==

== ENCOUNTER 2022-12-13 06:45 | Inpatient (IN) | payer SELFPAY, OTHER ==
[2022-12-13] VITALS (40 sets, daily range): BP systolic 72–124; BP diastolic 41–74; PULSE 57–95; RESP 12–19; TEMP 36–36.8; O2SAT 93–99; BMI 27.1
--- NOTE | 2022-12-13 | FALS_PTH ---
PATIENT: SHANTELL CARRILLO LOC: [facility] U#:[id number] AGE/SX: 27/F ROOM: WP007 RE12/13/[address]: Dr. Elmira Carrillo DO : 1995 BED: 1 DIS: 12/16/2022 SPEC #: [id number] RECD: 12/13/22 22:47 STATUS: ALEXANDRA RE #: [id number] ANDREAS: 12/13/22 00:[address]: Elmira Carrillo DEPT: SURGICAL PATHOLOGY RECD BY: Corey Valdes ENTERED: 12/14/22 10:05 SP TYPE: FALL TUBES OTHR DR: MD Dr. Hadley Valdez MD Tissues: Fallopian tube Procedures: Surgery Specimen Level II HEADER OPERATION: Bilateral salpingectomy PRE-OP DIAGNOSIS: Sterilization TISSUE SUBMITTED: Fallopian tubes MICROSCOPIC DIAGNOSIS Bilateral fallopian tubes, salpingectomy: Bilateral fallopian tubes, no pathologic diagnosis. EDY:estuardo 12/15/2022 MICROSCOPIC DESCRIPTION Slides are reviewed. GROSS DESCRIPTION Received in fixative is one container labeled with the patient's name and designated bilateral fallopian tubes. The specimen consists of bilateral fallopian tubes including fimbrial ends measuring 6.0 cm in length and 0.5 cm in diameter and 6.5 cm in length and 0.8 cm in diameter. The fallopian tubes are not identified as right or left. Sections reveal unremarkable cut surfaces. Business Supervisor sections are submitted in two cassettes with each cassette containing one fallopian tube. / EDY:estuardo 12/14/2022 TC:4 CPT: 72833 x2
[2022-12-13] MEDS: Lactated Ringers 1,000 ML 50 ML IV (07:56)
--- NOTE | 2022-12-13 08:18 | PCM.HP.BLA ---
History and Physical Date of Admission: 12/13/22 HPI: 27-year-old at 36/2 weeks, ABHIJEET 01/08/2023 by LMP consistent with first trimester ultrasound, admitted for induction of labor for dichorionic diamniotic twin gestation with growth restriction based on AC less than the 3rd percentile for both twins. Reports cramping and movement. Denies headache or vision changes, chest pain or shortness of breath, nausea or vomiting, fevers or chills, diarrhea or constipation. complicated by: dichorionic diamniotic twin gestation with growth restriction based on AC less than the 3rd percentile for both twin. echoes declined. Patient received Celestone on 11/30 and 12/01. Gestational thrombocytopenia. ELECT[employer]RARIAN history: G1: 6-week SAB no D&C G2: 12-week SAB, D&C G3: 9-week SAB no D&C G4: Term G5: Term Medical history: Denies Surgical history: 1. D&C Medications: vitamin Allergies: No known drug allergies Family history: Breast and brain cancer, noncontributory Social history: Denies tobacco, alcohol, drug use Review of system: Negative otherwise stated above Physical exam: Blood pressure 112/65, heart rate 95, temp 98.3 ?F General: No acute distress, comfortable HEENT: Normal cephalic/atraumatic, PERRLA Cardiorespiratory: No increased effort Abdomen: Soft, nontender, gravid Extremities: No edema Neurologic: Cranial nerves II through XII grossly intact, no focal deficits Musculoskeletal: Strength 5 out of 5 throughout extremities heart rate A: 150/mod anthony/+accel/no decel heart rate B: 145/mod anthony/+accel/no decel toco: rare BSUS: Baby A cephalic, Baby B transverse (consistent with US in office Tuesday) Assessment/plan: 27-year-old at 36/2 weeks, ABHIJEET 01/08/2023 by LMP consistent with first trimester ultrasound, admitted for induction of labor for dichorionic diamniotic twin gestation with growth restriction based on AC less than the 3rd percentile for both twins. complicated by: dichorionic diamniotic twin gestation with growth restriction based on AC less than the 3rd percentile for both twin. echoes declined. Patient received Celestone on 11/30 and 12/01. Gestational thrombocytopenia. ?Patient and her are discussing desire for induction of labor versus primary section with tubal ligation based on persistent transverse position of fetus B. Discussed options of induction of labor with vaginal delivery of baby A. Possible spontaneous version to cephalic position for baby B versus need for version to cephalic position from transverse or breech. Discussed risks of possible intolerance or inability to felicia baby B to cephalic position. In this case section would be indicated. Discussed possibility for planned section, patient would desire tubal ligation if she were to have . Risks and benefits of each reviewed. All questions answered. We will discuss and notify nurse and provider. Discussion completed with RN in room.
[2022-12-13 08:33] LABS: Absolute Lymphocyte Count 0.85 X10^3/uL (0.83-4.51); Absolute Neutrophil Count 5.9 X10^3/uL (2.0-7.7); Basophil# 0.01 X10^3/uL; Basophil% 0.1 % (0-1); Eosinophil# 0.04 X10^3/uL; Eosinophils% 0.5 % (0-5); Hematocrit 28.8 % (37-47); Hemoglobin 9.3 g/dL (12.0-15.0); Lymphocyte # 0.85 X10^3/ul (0.83-4.51); Lymphocyte % 11.6 % (19-41); Mean Corp Hgb Conc 32.3 g/dL (32-36); Mean Corpuscular Hgb 30.3 pg (27.0-32.0); Mean Corpuscular Volume 93.8 fL (81-99); Monocyte# 0.48 X10^3/uL; Monocyte% 6.6 % (0-10); NRBC Flagged by Analyzer 0 % (0-5); Neutrophil % 80.8 % (47-70); Platelet Count 124 K/mm3 (150-450); RBC Distribution Width CV 14.1 % (11.6-14.6); RBC Distribution Width SD 47.3 fl (35.1-43.9); Red Blood Count 3.07 M/mm3 (4.2-5.4); White Blood Count 7.3 K/mm3 (4.4-11.0)
[2022-12-13 10:57] LABS: Free T3 2.1 pg/mL (2.18-3.98); T4 Free Direct 1.12 ng/dL (0.76-1.46); Thyroid Stim Hormone (TSH) 0.62 uIU/mL (0.358-3.74)
[2022-12-13] MEDS: Lactated Ringers 1,000 ML 999 ML IV ×2 (15:45→19:20)
[2022-12-13] MEDS: Acetaminophen 500 MG Tablet 1000 MG PO (16:32)
[2022-12-13] MEDS: Lactated Ringers 1,000 ML 150 ML IV (16:46)
--- NOTE | 2022-12-13 17:11 | EX.PCM.OBRPT ---
Details Operative Information Date of Procedure: 12/13/22 Pre-Operative Diagnosis: Dichorionic diamniotic twin gestation, desires permanent sterilization, growth restriction Post-Operative Diagnosis: Dichorionic diamniotic twin gestation, desires permanent sterilization, growth restriction Indications Narrative: 27-year-old G6, P2 at 36/2 weeks, ABHIJEET 01/08/23, plan for primary section for growth restriction, transverse baby B, desires permanent sterilization. All risk, benefits, alternatives discussed with patient. Risk include but are not limited to: Risk of bleeding point transfusion, infection, injury to surrounding tissue including bowel/bladder potentially requiring prolonged Newell catheter use, VTE, ICU admission, risk of regret of sterilization. Patient understands and consents. Classification: Scheduled Procedure Type: low transverse Type of Anesthesia: Spinal Estimated Blood Loss: 1000cc Fluids Replaced: 1100cc Findings Description of Procedure: Procedure: Patient taken the operating room and spinal anesthesia placed. Patient placed in the supine position with left lateral tilt. Prepped and draped in the usual sterile fashion. Pfannenstiel skin incision made with scalpel and carried down through subcutaneous tissue. Fascia nicked on either side of midline and extended bilaterally bluntly. Sandeep clamps placed at the superior fascial edge which was tented up and underlying rectus muscles were dissected off sharply and bluntly at midline using Rizvi scissors. Sandeep clamps then moved to inferior fascial edge, rectus muscles were dissected off in a similar fashion. Hemostats used to separate rectus muscles superiorly. Peritoneum entered bluntly. Bladder blade placed. Low transverse uterine incision made with scalpel and uterus entered bluntly, extended bluntly. Anterior placenta noted upon entry to uterine cavity. Head elevated to the level of the hysterotomy and with the assistance of gentle fundal pressure head delivered followed by body. Nuchal cord x1, loose, reduced. Cord clamped and cut and baby handed to nursing. And replaced into the uterine cavity and amniotomy baby B was completed. Fetus palpated in transverse position with head to maternal left, fetus rotated slightly and head then delivered followed by body. Nuchal cord x1, loose, delivered through. Cord clamped and cut, baby to nursing. Manual extraction of placenta. Uterus exteriorized and cleared of all clots with lap. Hysterotomy closed with a running stitch. Hemostatic with a second vertical imbricating stitch and 1 [id number] suture at the left angle. Bilateral fallopian tubes identified from cornua to fimbriated end. Left fallopian tube grasped with Haydee clamps and removed along mesosalpinx using LigaSure device. Right fallopian tube grasped with Haydee clamps and removed along with mesosalpinx using LigaSure device. Mesosalpinx hemostatic. Uterus replaced. Hemostasis confirmed. Peritoneum closed with a running stitch. Muscle reapproximated with horizontal mattress suture. Fascia closed with a running stitch. Skin closed with running subcuticular stitch. At the end of the procedure all needle, lap, sponge counts were correct. Baby A female: APGARS 7/8 Baby B Male: APGARS 8/9 Paitent to receive 1,000 mcg cytotec AK post operatively due to risk of hemmorhage. Amniotic Fluid Description: Clear (Baby A and Baby B)
[2022-12-13] MEDS: Sodium Citrate/Citric Acid 30 ML UDC PO (17:21)
[2022-12-13] MEDS: Cefazolin 2 GM in 0.9% Normal Saline 100 ML IV (17:37)
[2022-12-13] MEDS: miSOPROStol 200 MCG Tablet 1000 MCG RC (18:39)
[2022-12-13] MEDS: Oxytocin 15 Units/NS 250ml 15 UNITS/250 ML IV.SOLN 83 UNITS IV (18:55)
[2022-12-13] MEDS: Methylergonovine 0.2 MG/ML Ampul IM (19:19)
[2022-12-13] MEDS: 0.9% Saline Lock 10 ML Syringe IV ×3 (19:30→22:35)
[2022-12-13 19:38] LABS: Absolute Lymphocyte Count 0.85 X10^3/uL (0.83-4.51); Absolute Neutrophil Count 5.5 X10^3/uL (2.0-7.7); Basophil# 0.01 X10^3/uL; Basophil% 0.1 % (0-1); Eosinophil# 0.04 X10^3/uL; Eosinophils% 0.6 % (0-5); Hematocrit 22.4 % (37-47); Hemoglobin 7.2 g/dL (12.0-15.0); Lymphocyte # 0.85 X10^3/ul (0.83-4.51); Lymphocyte % 12.2 % (19-41); Mean Corp Hgb Conc 32.1 g/dL (32-36); Mean Corpuscular Hgb 30.9 pg (27.0-32.0); Mean Corpuscular Volume 96.1 fL (81-99); Mean Platelet Vol. 10.7 fl (6.2-12.0); Monocyte# 0.54 X10^3/uL; Monocyte% 7.8 % (0-10); NRBC Flagged by Analyzer 0 % (0-5); Neutrophil # 5.48 X10^3/uL (2.7-7.7); Neutrophil % 78.9 % (47-70); Platelet Count 114 K/mm3 (150-450); RBC Distribution Width CV 14.2 % (11.6-14.6); RBC Distribution Width SD 49.2 fl (35.1-43.9); Red Blood Count 2.33 M/mm3 (4.2-5.4)
--- NOTE | 2022-12-13 19:44 | NURSING ---
DR.C Carrillo called. updated on BP 78/42 while in Trendelenburg. LR bolus infusing, fundus firm, lochia scant. HGB 7.2. HR 62. pt feeling dizzy and tired. pale. new orders for 2 U PRBC and then recheck CBC 6 hours after 2nd unit transfused
--- NOTE | 2022-12-13 20:35 | NURSING ---
2035-RN IBCLC in room to assist feeding infant B and assist with hand expression to collect colostrum for A. B nursing for second time. Hand expression performed on left breast for 5-10 minutes and 2.5cc of colostrum collected to take to A in SCN.
[2022-12-13] MEDS: 0.9% Normal Saline 1,000 ML 15 ML IV (20:44)
--- NOTE | 2022-12-13 21:48 | NURSING ---
DR.C Carrillo called in for pt update. updated 1st unit of PRBC continues to infuse. Lochia scant, fundus firm, bps 80s/50s. Toradol orders clarified. per , okay to give toradol per order. pt to get 2nd unit of PRBC and CBC in morning between [id number]. updated baby A is being transported to [facility]. placenta to be sent with baby A and transport team.
[2022-12-13] MEDS: Ketorolac 30 MG/ML Syringe IV (22:02)
--- NOTE | 2022-12-13 22:05 | NURSING ---
2100- RN IBCLC back in room to assist with more hand expression as manager animation told parents A was being transferred to [facility]. Hand expression performed for another 10 minutes and 2.25cc of colostrum collected to provide second syringe of colostrum for infant being transferred. Education given that MOB will be set up with a double hospital grade breast pump when her blood pressure improves and she can sit up in bed. Encouragement given that infant B has been able to nurse twice and breast massage and hand expression has been performed on both breasts so breast stimulation has been performed.
[2022-12-13] MEDS: Ondansetron 4 MG/2 ML Vial IV (22:35)
[2022-12-14] VITALS (16 sets, daily range): BP systolic 77–102; BP diastolic 40–64; PULSE 60–84; RESP 14–18; TEMP 36.2–37.1; O2SAT 95–99
--- NOTE | 2022-12-14 00:52 | NURSING ---
Late entry from 12/13/22 @ 1935. Pt with moderate amount of bleeding with fundal checks, BP's 70's/40's, and pt feeling dizzy. Hemorrhage cart brought into room by Nedra,LITZY. Dr. Carrillo updated on pt status at 1916 by Shahla,LITZY. Methergine 0.2 mg given IM @ 1918 by this RN per Dr. Troy. LR bolus started at 1919. 2nd IV inserted at 1929 by LITZY Jimenez. Warm blankets put on pt at 1934. RN at bedside continuously; checking BP's q5 minutes. Will maintain communication with Dr. Troy and follow orders given.
[2022-12-14] MEDS: Lactated Ringers 1,000 ML 100 ML IV ×2 (01:46→11:46)
[2022-12-14] MEDS: 0.9% Saline Lock 10 ML Syringe IV ×4 (01:46→23:15)
[2022-12-14] MEDS: Acetaminophen 500 MG Tablet 1000 MG PO ×4 (02:35→20:44)
[2022-12-14] MEDS: Ketorolac 30 MG/ML Syringe IV ×3 (04:08→16:52)
[2022-12-14 05:31] LABS: Hematocrit 26.7 % (37-47); Hemoglobin 8.7 g/dL (12.0-15.0); Mean Corp Hgb Conc 32.6 g/dL (32-36); Mean Corpuscular Hgb 30.5 pg (27.0-32.0); Mean Corpuscular Volume 93.7 fL (81-99); Mean Platelet Vol. 10.8 fl (6.2-12.0); POSITIVE COUNT YES; Platelet Count 94 K/mm3 (150-450); RBC Distribution Width CV 14.2 % (11.6-14.6); RBC Distribution Width SD 48.2 fl (35.1-43.9); Red Blood Count 2.85 M/mm3 (4.2-5.4); White Blood Count 6.6 K/mm3 (4.4-11.0)
--- NOTE | 2022-12-14 07:20 | NURSING ---
report given to Gerber Busby RN who is assuming care of pt at this time
--- NOTE | 2022-12-14 08:14 | PCM.PN.OB ---
Subjective Subjective Lochia minimal. Reports some lightheadedness when sitting up. Denies chest pain or shortness of breath, nausea or vomiting. Pumping. Objective Data Objective Data Vital Signs: Vital Signs Temp Pulse Resp BP Pulse Ox O2 Del Method 97.6 F L 65 18 80/40 L 97 Room Air 12/14/22 06:10 12/14/22 06:10 12/14/22 06:10 12/14/22 06:10 12/14/22 06:10 12/14/22 06:10 Oxygen Delivery Method Room Air Weight: 83.4 kg Body Mass Index (BMI) 27.1 Intake & Output: Intake and Output for Last 24 Hours 12/12/22 12/13/22 12/14/22 23:59 23:59 23:59 Intake Total 3843.42 / 3843.42 643.75 / 643.75 Output Total 1550 / 1550 720 / 720 Balance 2293.42 / 2293.42 -76.25 / -76.25 Lab / Micro Data Attestation: I reviewed the patient's lab results. Result Diagrams: 12/14/22 05:10 Labs: Laboratory Results - last 24 hr 12/13/22 07:55: WBC 7.3, RBC 3.07 L, Hgb 9.3 L, Hct 28.8 L, MCV 93.8, MCH 30.3, MCHC 32.3, RDW Std Deviation 47.3 H, RDW Coeff of Yusef 14.1, Plt Count 124 L, MPV 11.0, Immature Gran % (Auto) 0.400, Neut % (Auto) 80.8 H, Lymph % (Auto) 11.6 L, [place] % (Auto) 6.6, Eos % (Auto) 0.5, Baso % (Auto) 0.1, Absolute Neuts (auto) 5.9, Absolute Lymphs (auto) 0.85, Nucleated RBC % 0 12/13/22 07:55: Blood Type A NEGATIVE, Antibody Screen POSITIVE, Antibody Identification ANTI-D 12/13/22 07:55: Crossmatch See Detail 12/13/22 10:00: TSH 0.62, Free T4 1.12, Free T3 pg/dL 2.1 L 12/13/22 19:30: WBC 7.0, RBC 2.33 L, Hgb 7.2 L, Hct 22.4 L, MCV 96.1, MCH 30.9, MCHC 32.1, RDW Std Deviation 49.2 H, RDW Coeff of Yusef 14.2, Plt Count 114 L, MPV 10.7, Immature Gran % (Auto) 0.400, Neut % (Auto) 78.9 H, Lymph % (Auto) 12.2 L, Laurens % (Auto) 7.8, Eos % (Auto) 0.6, Baso % (Auto) 0.1, Absolute Neuts (auto) 5.5, Absolute Lymphs (auto) 0.85, Nucleated RBC % 0 12/14/22 05:10: WBC 6.6, RBC 2.85 L, Hgb 8.7 L, Hct 26.7 L, MCV 93.7, MCH 30.5, MCHC 32.6, RDW Std Deviation 48.2 H, RDW Coeff of Yusef 14.2, Plt Count 94 L, MPV 10.8 12/14/22 05:10: Screen NEGATIVE, Baby's Blood Type A POSITIVE, Baby's SOFYA NEGATIVE Physical Exam Const alert, oriented x3 and no apparent distress HEENT normocephalic Head and Scalp: atraumatic Neck full ROM Resp normal respiratory effort Cardio regular rate GI normal to inspection, nondistended, normoactive bowel sounds GI Narrative: Uterus 2 cm below umbilicus, dressing clean and dry Back/Spine normal ROM Extremity normal to inspection Extremity Narrative: Minimal pedal edema Neuro no focal motor deficits and no sensory deficits noted Psych mental status grossly normal and affect normal Assessment & Plan (1) Delivery by section: PLAN: Postop day 1 status post primary section and bilateral salpingectomy elective for Di/Di twin gestation and desire for tubal sterilization. Complicated by acute on chronic anemia secondary to surgery. Patient had Cytotec immediately postoperatively and did receive 1 dose of Methergine during recovery period. Her bleeding since that time has been minimal and uterus is firm. Patient received 2 units of packed red blood cells on 12/13. Hemoglobin this morning has improved, however patient is still symptomatic when sitting forward. She continues to be hypotensive, however no tachycardia present. Will transfuse 1 additional unit of PRBCs for symptom improvement. Reassess CBC 6 hours posttransfusion. Baby A was transported last evening to [facility], per crystalizer tender is doing well this morning. Baby is in room with patient. Reviewed plan and all questions were answered with patient and her . Additionally reviewed plan with bedside RN. (2) Other acute postprocedural pain:
[2022-12-14] MEDS: Senna/Docusate Sodium 1 Tablet PO (10:27)
[2022-12-14] MEDS: Enoxaparin 40 MG/0.4 ML Syringe SC (10:27)
[2022-12-14] MEDS: 0.9% Normal Saline 1,000 ML 1 ML IV (10:35)
[2022-12-14 18:21] LABS: Absolute Lymphocyte Count 0.85 X10^3/uL (0.83-4.51); Absolute Neutrophil Count 6.2 X10^3/uL (2.0-7.7); Basophil# 0.01 X10^3/uL; Basophil% 0.1 % (0-1); Eosinophil# 0.04 X10^3/uL; Eosinophils% 0.5 % (0-5); Hematocrit 29.3 % (37-47); Hemoglobin 9.6 g/dL (12.0-15.0); Lymphocyte # 0.85 X10^3/ul (0.83-4.51); Mean Corp Hgb Conc 32.8 g/dL (32-36); Mean Corpuscular Hgb 30.6 pg (27.0-32.0); Mean Corpuscular Volume 93.3 fL (81-99); Mean Platelet Vol. 10.9 fl (6.2-12.0); Monocyte% 7.8 % (0-10); NRBC Flagged by Analyzer 0 % (0-5); Neutrophil # 6.16 X10^3/uL (2.7-7.7); Neutrophil % 79.7 % (47-70); Platelet Count 108 K/mm3 (150-450); RBC Distribution Width CV 14.4 % (11.6-14.6); RBC Distribution Width SD 48.1 fl (35.1-43.9); Red Blood Count 3.14 M/mm3 (4.2-5.4); White Blood Count 7.7 K/mm3 (4.4-11.0)
[2022-12-14] MEDS: Ibuprofen 600 MG Tablet PO (23:13)
[2022-12-15 01:30] VITALS: BP 90/51; PULSE 62; RESP 18; TEMP 37.2; O2SAT 97
--- NOTE | 2022-12-15 04:20 | PCM.PN.OB ---
Subjective Subjective Patient feeling improved. Lochia minimal. Pain controlled with medication. Breast-feeding. Denies dizziness, lightheadedness, chest pain or shortness of breath. Objective Data Objective Data Vital Signs: Vital Signs Temp Pulse Resp BP Pulse Ox O2 Del Method 99.0 F 62 18 90/51 L 97 Room Air 12/15/22 01:30 12/15/22 01:30 12/15/22 01:30 12/15/22 01:30 12/15/22 01:30 12/15/22 01:30 Oxygen Delivery Method Room Air Weight: 83.4 kg Body Mass Index (BMI) 27.1 Intake & Output: Intake and Output for Last 24 Hours 12/13/22 12/14/22 12/15/22 23:59 23:59 23:59 Intake Total 3843.42 / 3843.42 2538.75 / 2538.75 Output Total 1550 / 1550 2620 / 2620 Balance 2293.42 / 2293.42 -81.25 / -81.25 Lab / Micro Data Attestation: I reviewed the patient's lab results. Result Diagrams: 12/14/22 18:00 Labs: Laboratory Results - last 24 hr 12/13/22 07:55: Crossmatch See Detail 12/13/22 07:55: Crossmatch See Detail 12/14/22 05:10: WBC 6.6, RBC 2.85 L, Hgb 8.7 L, Hct 26.7 L, MCV 93.7, MCH 30.5, MCHC 32.6, RDW Std Deviation 48.2 H, RDW Coeff of Yusef 14.2, Plt Count 94 L, MPV 10.8 12/14/22 05:10: Screen NEGATIVE, Baby's Blood Type A POSITIVE, Baby's SOFYA NEGATIVE 12/14/22 18:00: WBC 7.7, RBC 3.14 L, Hgb 9.6 L, Hct 29.3 L, MCV 93.3, MCH 30.6, MCHC 32.8, RDW Std Deviation 48.1 H, RDW Coeff of Yusef 14.4, Plt Count 108 L, MPV 10.9, Immature Gran % (Auto) 0.900, Neut % (Auto) 79.7 H, Lymph % (Auto) 11.0 L, [place] % (Auto) 7.8, Eos % (Auto) 0.5, Baso % (Auto) 0.1, Absolute Neuts (auto) 6.2, Absolute Lymphs (auto) 0.85, Nucleated RBC % 0 Physical Exam Const alert, oriented x3 and no apparent distress HEENT normocephalic Head and Scalp: atraumatic Neck full ROM Resp normal respiratory effort Cardio regular rate GI normal to inspection, nondistended, normoactive bowel sounds GI Narrative: Uterus 2 cm below umbilicus, dressing clean and dry Back/Spine normal ROM Extremity normal to inspection Extremity Narrative: Minimal pedal edema Neuro no focal motor deficits and no sensory deficits noted Psych mental status grossly normal and affect normal Assessment & Plan (1) Delivery by section: PLAN: Postop day 2 status post primary section bilateral salpingectomy. Elected for di-/Di twins with growth restriction and desire for tubal sterilization, baby in transverse position. Complicated by acute on chronic anemia secondary to surgery. Patient is now status post 3 units packed red blood cells. Feeling much improved. Voiding spontaneously. Vital stable. Repeat CBC pending this morning. Baby A is currently at [facility], may return to [place] today or tomorrow. We will plan discharge home based on this and blood counts this morning. (2) Other acute postprocedural pain:
--- NOTE | 2022-12-15 04:22 | DCINST_ITS ---
Discharge Instructions Diet Discharge Diet: No restrictions Activity Discharge Activity: Return to Normal Activity and May Shower May resume sexual activity in: 4-6 weeks Weight Bearing Status: Weight bearing as tolerated Lifting Restrictions: No greater than 25 pounds Dressing / Incision Call your doctor if your incision/area has: Continuous Slow Oozing, Increased Redness and Swelling at the incision site Call your doctor if you observe: Fever of 101 or Higher, Change in Color, Inability to urinate, Using more than 1 pad per hour, Shortness of breath, Dizziness, Swelling in the ankles, Chest pain and Calf discomfort Remove Dressing in: 1 week Cleanse incision/area with: Soap & Water and Keep Dressing Clean & Dry Follow Up Care Please Follow Up With: Elmira Carrillo DO When: 2-week and 6-week visit Test Results: Test results from this visit will be discussed in further detail at your follow- up appointment, if applicable. Discharge Plan Admission Admit Date/Time: 12/13/22 06:45 Primary Reason for Your Visit: section Attending Provider: Elmira Carrillo Primary Care Provider: Hadley Doyle Discharge Orders/Prescriptions Prescriptions: New oxycodone 5 mg tablet 5 mg PO Q6H PRN (Reason: pain (scale score 7-10)) 5 Days Qty: 24 0RF Referrals / Follow Up: Hadley Doyle MD [Primary Care Provider] - Disposition Disposition (needs filled in before D/C Order can be placed): Home, Self Care
[2022-12-15] MEDS: Acetaminophen 500 MG Tablet 1000 MG PO ×4 (04:45→23:36)
[2022-12-15] MEDS: Ibuprofen 600 MG Tablet PO ×4 (04:46→23:36)
[2022-12-15 04:59] LABS: Hematocrit 29.2 % (37-47); Hemoglobin 9.7 g/dL (12.0-15.0); Mean Corp Hgb Conc 33.2 g/dL (32-36); Mean Corpuscular Hgb 30.7 pg (27.0-32.0); Mean Corpuscular Volume 92.4 fL (81-99); Mean Platelet Vol. 10.5 fl (6.2-12.0); Platelet Count 114 K/mm3 (150-450); RBC Distribution Width CV 14.3 % (11.6-14.6); RBC Distribution Width SD 47.8 fl (35.1-43.9); Red Blood Count 3.16 M/mm3 (4.2-5.4); White Blood Count 7.1 K/mm3 (4.4-11.0)
--- NOTE | 2022-12-15 07:30 | NURSING ---
report given to Saniya Vargas RN who is assuming care of pt at this time
[2022-12-15 08:33] VITALS: BP 111/67; PULSE 69; RESP 16; TEMP 36.8; O2SAT 98
[2022-12-15] MEDS: Enoxaparin 40 MG/0.4 ML Syringe SC (10:11)
[2022-12-15] MEDS: Senna/Docusate Sodium 1 Tablet PO (10:11)
--- NOTE | 2022-12-15 12:50 | CASEMGMT ---
Social Work Labor and Delivery Unit Social work referral received for history of depression and 1 twin, of twin delivery this admission, transferred to [facility]. Records reviewed. Presented to mother baby's room (MOB) and found MOB, father of baby (FOB) and MOB's mother in hallway en route to the [facility] as baby girl Amarilis was transferred from [facility] to the special care nursery. Introduced to self and role as [facility] manager social services, but that also the assigned manager social services to [facility]. MOB and FOB report this would be the first they have been able to see the baby. In light of MOB and FOB not yet being able to spend time with their baby girl, this screenplay writer agreed to come back at a later time to touch base. MOB and FOB expressed agreement. -ISRAEL Lopez, METAL BASE BLOCKER *This note was generated with [employer] dictation software. It may contain incorrect words, spelling, and punctuation that were not noted in review of the chart prior to signing*
[2022-12-15] MEDS: oxyCODONE 5 MG Tablet PO ×3 (14:10→22:44)
[2022-12-15 14:12] VITALS: BP 106/68; PULSE 62; RESP 16; TEMP 36.7; O2SAT 96
[2022-12-15] MEDS: 0.9% Saline Lock 10 ML Syringe IV (15:37)
[2022-12-15 20:25] VITALS: BP 109/67; PULSE 73; RESP 16; TEMP 36.6
[2022-12-16 02:25] VITALS: BP 113/68; PULSE 65; RESP 16; TEMP 36.6
[2022-12-16] MEDS: Ibuprofen 600 MG Tablet PO ×2 (05:35→11:46)
[2022-12-16] MEDS: Acetaminophen 500 MG Tablet 1000 MG PO ×2 (05:35→11:47)
--- NOTE | 2022-12-16 07:30 | PN.OBGYN_ITS ---
Subjective Subjective Patient feeling well rested. Lochia minimal. Pain controlled. Objective Data Objective Data Vital Signs: Vital Signs Temp Pulse Resp BP Pulse Ox O2 Del Method 97.8 F 65 16 113/68 96 Room Air 12/16/22 02:25 12/16/22 02:25 12/16/22 02:25 12/16/22 02:25 12/15/22 14:12 12/15/22 14:12 Oxygen Delivery Method Room Air Weight: 83.4 kg Body Mass Index (BMI) 27.1 Intake & Output: Intake and Output for Last 24 Hours 12/14/22 12/15/22 12/16/22 23:59 23:59 23:59 Intake Total 2538.75 / 2538.75 Output Total 2620 / 2620 500 / 500 Balance -81.25 / -81.25 -500 / -500 Lab / Micro Data Attestation: I reviewed the patient's lab results. Result Diagrams: 12/15/22 04:50 Physical Exam Const alert, oriented x3 and no apparent distress HEENT normocephalic Head and Scalp: atraumatic Neck full ROM Resp normal respiratory effort Cardio regular rate GI normal to inspection, nondistended, normoactive bowel sounds GI Narrative: Uterus 2 cm below umbilicus, dressing clean and dry Back/Spine normal ROM Extremity normal to inspection Extremity Narrative: Minimal pedal edema Neuro no focal motor deficits and no sensory deficits noted Psych mental status grossly normal and affect normal Assessment & Plan (1) Delivery by section: PLAN: Postop day 3 status post primary section bilateral salpingectomy. Elected for di-/Di twins with growth restriction and desire for tubal sterilization, baby in transverse position. Complicated by acute on chronic anemia secondary to surgery. Patient is now status post 3 units packed red blood cells. Feeling much improved. CBC stable. Baby A is back at [facility] nursery. Desires discharge today. We will iron supplement on home-going. Follow-up in 2 weeks and 6 weeks . (2) Other acute postprocedural pain:
--- NOTE | 2022-12-16 07:32 | DS.PCM_ITS ---
Discharge Summary Date of Admission: 12/13/22 Date of Discharge: 12/16/22 Summary: Patient admitted for induction of labor. Decided for section tubal sterilization due to desire for sterilization and transverse position of baby B. She had primary section and bilateral salpingectomy on 12/13/2022. Patient received 3 units of packed red blood cells post operatively due to acute on chronic anemia. Patient clinically improved feeling well and hemoglobin stable. Baby A went to [facility] and is now returned back to [facility]. Patient feeling well. Desires discharge home today. Meaningful Use Info Meaningful Use Diagnoses (Choose all that apply): None applicable Discharge Plan Admission Admit Date/Time: 12/13/22 06:45 Primary Reason for Your Visit: section Attending Provider: Elmira Carrillo Primary Care Provider: Hadley Doyle Discharge Orders/Prescriptions Prescriptions: New oxycodone 5 mg tablet 5 mg PO Q6H PRN (Reason: pain (scale score 7-10)) 5 Days Qty: 24 0RF Referrals / Follow Up: Hadley Doyle MD [Primary Care Provider] - Disposition Disposition (needs filled in before D/C Order can be placed): Home, Self Care
[2022-12-16 08:07] VITALS: BP 91/51; PULSE 75; RESP 16; TEMP 36.6; O2SAT 97
[2022-12-16 10:01] LABS: Pathology Specimen OB SEE PATHOLOGY REPORT
[2022-12-16 11:41] VITALS: BP 129/80; PULSE 81; RESP 16; TEMP 36.9
[2022-12-16] MEDS: Senna/Docusate Sodium 1 Tablet PO (11:46)
[2022-12-16] MEDS: Enoxaparin 40 MG/0.4 ML Syringe SC (11:47)
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
== END 2022-12-16 13:30 | disposition home or self-care (01) | DRG 783 ==
PROVIDERS: Admitting Provider Obstetrics & Gynecology; PCP Family Medicine; Visit Provider Student in an Organized Health Care Education/Training Program
DX: O30.043 Twin pregnancy, dichorionic/diamniotic, third trimester (principal); O60.14X1 Preterm labor third trimester with preterm delivery third trimester, fetus 1; O60.14X2 Preterm labor third trimester with preterm delivery third trimester, fetus 2; D62 Acute posthemorrhagic anemia; O99.12 Other diseases of the blood and blood-forming organs and certain disorders involving the immune mechanism complicating childbirth; D69.6 Thrombocytopenia, unspecified; Z37.2 Twins, both liveborn; O26.23 Pregnancy care for patient with recurrent pregnancy loss, third trimester; Z3A.36 36 weeks gestation of pregnancy; O32.2XX2 Maternal care for transverse and oblique lie, fetus 2; O69.81X1 Labor and delivery complicated by cord around neck, without compression, fetus 1; O69.81X2 Labor and delivery complicated by cord around neck, without compression, fetus 2; O90.81 Anemia of the puerperium; Z30.2 Encounter for sterilization
CPT/HCPCS: 59025; 59050; 76815; 84439; 84443; 84481; 85025; 85027; 85461; 86850; 86870; 86900; 86901; 86920; 88302; 94668; 99221; J7030; J7120; P9016; A4216; G0378; J2405; J2790